=== PATIENT | female | born 1940 | race Two or more races ===

== ENCOUNTER 2019-12-14 06:00 | Outpatient (CLI) | payer OTHER ==
[~2019-12-14] VITALS: Ht 144.8 cm; Wt 59.4 kg
[2019-12-14] MEDS ORDERED: COZAAR100 MG PO (14:12)
[2019-12-14] MEDS ORDERED: DILT PO (14:13)
[2019-12-14] MEDS ORDERED: ISORBIDE PO (14:13)
[2019-12-14] MEDS ORDERED: HYDRALAZINE HCL10 MG PO (14:15)
[2019-12-14] MEDS ORDERED: FOLIC PO (14:16)
[2019-12-14] MEDS ORDERED: ATORVASTATIN CA40 MG PO (14:16)
== END 2019-12-14 06:05 | disposition home or self-care (01) ==
LOC: LAB 06:00 → ADM 12-15 09:30 → SURH 12-19 07:00 → ADM 12-19 09:30 → EDSTATUS 12-19 09:30
PROVIDERS: ATTEND Orthopaedic Surgery Orthopaedic Surgery of the Spine
DX: M50.021 Cervical disc disorder at C4-C5 level with myelopathy (principal); M05.0 Felty's syndrome; M50.022 Cervical disc disorder at C5-C6 level with myelopathy; M50.023 Cervical disc disorder at C6-C7 level with myelopathy; Z20.828 Contact with and (suspected) exposure to other viral communicable diseases; Z01.812 Encounter for preprocedural laboratory examination

== ENCOUNTER 2020-03-12 10:00 | Inpatient (IN) | payer OTHER ==
[~2020-03-12] VITALS: Ht 149.9 cm; Wt 56.7 kg
[~2020-03-12 10:00] MED LIST: ATORVASTATIN CA40 MG PO; COZAAR100 MG PO; DILTIAZEM PO; FOLIC PO; HYDRALAZINE HCL10 MG PO; ISORBIDE PO
[2020-03-12] MEDS ORDERED: LEVO-T25 MCG PO (13:28)
[2020-03-12] MEDS ORDERED: GABAPENTIN600 MG PO (13:28)
[2020-03-12] MEDS ORDERED: HYDROCHLOROTH12.5 MG PO (13:28)
[2020-03-12] MEDS ORDERED: CARAFATE1 GM PO (13:29)
[2020-03-19] MEDS ORDERED: MEDROLPACK PO (14:50)
[2020-03-19] MEDS ORDERED: COLACE100 MG PO (14:51)
[2020-03-19] MEDS ORDERED: PERCOCET 5-3251 EACH PO (14:52)
[2020-03-19] MEDS ORDERED: DIAZEPAM10 MG PO (14:52)
== END 2020-03-20 17:29 | disposition home or self-care (01) | DRG 473 ==
LOC: O/R 03-19 08:38 → SURH 03-19 08:38
PROVIDERS: ADMIT Orthopaedic Surgery Orthopaedic Surgery of the Spine; ATTEND Orthopaedic Surgery Orthopaedic Surgery of the Spine
PROC: 0RG2070 Fusion of 2 or more Cervical Vertebral Joints with Autologous Tissue Substitute, Anterior Approach, Anterior Column, Open Approach (ICD-10-PCS; 2020-03-19)
PROC: 0RT30ZZ Resection of Cervical Vertebral Disc, Open Approach (ICD-10-PCS; 2020-03-19)
PROC: 3E0U0GB Introduction of Recombinant Bone Morphogenetic Protein into Joints, Open Approach (ICD-10-PCS; 2020-03-19)
PROC: 07DS3ZZ Extraction of Vertebral Bone Marrow, Percutaneous Approach (ICD-10-PCS; 2020-03-19)
PROC: 4A12X4Z Monitoring of Cardiac Electrical Activity, External Approach (ICD-10-PCS; 2020-03-19)
PROC: 0RG20A0 Fusion of 2 or more Cervical Vertebral Joints with Interbody Fusion Device, Anterior Approach, Anterior Column, Open Approach (ICD-10-PCS; principal; 2020-03-19 16:15)
DX: M50.023 Cervical disc disorder at C6-C7 level with myelopathy (principal); E03.8 Other specified hypothyroidism; I10 Essential (primary) hypertension